=== PATIENT | male | born 1985 | race African-American/Black ===

== ENCOUNTER 2016-08-25 23:21 | Emergency (ER) | payer SELFPAY ==
[~2016-08-25 23:21] MED LIST: NO MEDICATIONS
== END 2016-08-26 01:55 | disposition home or self-care (01) ==
LOC: CED 23:21
DX: K08.89 Other specified disorders of teeth and supporting structures (principal); I10 Essential (primary) hypertension
CPT/HCPCS: 99283

== ENCOUNTER → 2016-09-03 | Outpatient (CLI) | payer OTHER ==
[2016-09-03 10:51] LABS: HEMATOCRIT 49.9 % (38.0-50.0); HEMOGLOBIN 16.6 gm/dL (13.0-16.0); MEAN CELL VOLUME 89.2 FL (83-96); MEAN CORPUSCULAR HEMOGLOBIN 29.7 PG (28-34); MEAN CORPUSCULAR HGB CONC 33.4 g/dL (30-36); MEAN PLATELET VOLUME 7.9 FL (6.5-11.5); RED BLOOD COUNT 5.59 X10e (3.90-5.60); RED CELL DISTRIBUTION WIDTH 13.6 % (11.0-15.5); WHITE BLOOD COUNT 9.9 X10e3 (4.0-10.5)
== END | disposition home or self-care (01) ==
LOC: CBAR 09:37
PROVIDERS: Nurse Practitioner
DX: K04.7 Periapical abscess without sinus (principal); I10 Essential (primary) hypertension; Z87.09 Personal history of other diseases of the respiratory system; Z87.442 Personal history of urinary calculi
CPT/HCPCS: 36415; 85027